=== PATIENT | male | born 1985 | race Caucasian/White ===

== ENCOUNTER → 2017-11-08 17:39 | Outpatient (CLI) | payer MEDICAID, SELFPAY ==
[2017-11-08 18:19] LABS: Hematocrit 43.4 % (40-54); Hemoglobin 15.4 g/dl (13.0-16.5); Mean Corp Hgb Conc 35.5 g/gl (32-36); Mean Corpuscular Hgb 31.4 pg (27.0-32.0); Mean Corpuscular Volume 88.6 fL (80-94); Mean Platelet Vol. 10.8 fl (6.2-12.0); Platelet Count 214 K/mm3 (150-450); RBC Distribution Width SD 41.5 fl (35.1-43.9); White Blood Count 7.4 K/mm3 (4.4-11.0)
[2017-11-08 18:39] LABS: Valproic Acid (Depakene) Level 4 ug/mL (50-100)
[2017-11-08 18:41] LABS: ALB/GLOB Ratio 1.2 RATIO (0.9-2.4); AST(SGOT) 18 U/L (15-37); Alanine Aminotransfer ALT/SGPT 22 U/L (16-61); Albumin, Serum 4.4 g/dL (3.2-5.0); Alkaline Phosphatase 151 U/L (45-117); Anion Gap 6 (5-15); BUN 13 mg/dL (7-18); BUN/Creat Ratio 13.1 RATIO (10-20); Calcium,Total 8.3 mg/dL (8.5-10.1); Chloride 109 mmol/L (98-107); Creatinine, Serum 0.99 mg/dL (0.70-1.30); EST Glomerular Filtration Rate 94 mL/min (>60); Est Glom Filt Rate - Afr Amer 113 mL/min (>60); Globulin 3.6 g/dL (2.2-4.2); Glucose 72 mg/dL (74-106); Potassium 3.5 mmol/L (3.5-5.1); Scan Indicated on CBC? Y/N NO; Sodium Level 141 mmol/L (136-145)
[2017-11-11 14:36] LABS: KEPPRA (LEVETIRACETAM) 40.8 ug/mL (10.0-40.0)
== END ==
PROVIDERS: Visit Provider Nurse Practitioner Acute Care
DX: R56.9 Unspecified convulsions (principal)
CPT/HCPCS: 36415; 80053; 80164; 80177; 85027

== ENCOUNTER → 2017-12-27 07:16 | Outpatient (CLI) | payer MEDICAID, SELFPAY ==
--- NOTE | 2018-01-02 11:12 | EEG ---
- Electroencephalogram Date of service 12/27/17 18 channel electroencephalogram performed on this 32-year-old male with a history of seizures. The test is performed due to recurrent seizures approximately 45 days prior. This is an 18 channel electroencephalogram performed utilizing the International 10-20 electrode placement protocol. EKG rhythm strip recording, photic stimulation, and hyperventilation were also performed. The patient remained awake throughout the recording with no lateralizing or epileptic form changes. Background activity is 8-10 Hz symmetrically in the posterior leads which attenuates with eye opening. Hyperventilation is performed for 3 minutes with good effort with no lateralizing or epileptiform changes. EKG is normal and photic stimulation generates a normal symmetric driving response in the posterior leads. Impression: Normal awake electroencephalogram
== END ==
PROVIDERS: Visit Provider Nurse Practitioner Acute Care
DX: R56.9 Unspecified convulsions (principal)
CPT/HCPCS: 95819

== ENCOUNTER 2018-11-10 04:50 | Emergency (ER) | payer MEDICAID, SELFPAY ==
[2018-11-10 04:51] VITALS: BP 109/74; PULSE 70; RESP 16; TEMP 36.5; O2SAT 98; BMI 20.7
--- NOTE | 2018-11-10 05:56 | ED.VISSUMM ---
- ER Visit Summary Date of Service: 11/10/18 Chief Complaint: Possible seizure History of Present Illness: The patient is a 33 M who presents with possible seizure that occurred this morning. Patient states he missed his dose of Keppra last night. Patient states he normally takes 1500 mg of Keppra twice daily. Patient states he felt lightheaded. Patient states his friend thought he was spaced out and possibly having a seizure. Patient states his normal seizures are grand mal type seizures. Patient denies biting his tongue. Patient denies any urinary or stool incontinence. Physical Examination: Vital signs are stable. Patient is afebrile. Patient is in no acute distress. Pupils are equal, round, and reactive to light bilaterally. Oral mucosa is pink and moist. Neck is supple. Trachea is midline. There is no JVD noted. Heart was regular rate and rhythm. Lungs are clear and equal bilateral. Abdomen is soft. Bowel sounds are normal. There is no tenderness. There is no guarding noted. Skin is warm dry. Cranial nerves II through XII are intact. There are no focal motor or sensory deficits noted. The remaining physical exam is within normal limits. Emergency Department Course and Treatment: I informed the patient that missing 1 dose of his Keppra will probably not alter his Keppra level significantly. Patient was given a dose of Keppra here in the emergency department. Patient was instructed to continue his Keppra twice daily as prescribed. Patient was also advised that this is probably not a seizure since his seizures are typically grand mal type seizures and this did not appear to be a grand mal type seizure. Patient was instructed to follow-up with his primary care physician in 5-7 days. Patient understood and was agreeable with the plan. All questions were answered. Disposition: Discharge home Impression: Seizure disorder This note was generated with [employer] dictation software. It may contain incorrect words, spelling, and punctuation that were not noted in review of the chart prior to signing ED Disposition - Plan for ED Patient: Disposition: Home or Assisted Living Diagnosis: Seizure disorder Instructions: ED Seizure Recurrent Referrals: Alexia Mancia NP-C [Primary Care Provider] -
[2018-11-10 06:23] VITALS: RESP 16
[2018-11-10] MEDS: levETIRAcetam 750 MG Tablet 1500 MG PO (06:23)
== END 2018-11-10 06:24 | disposition home or self-care (01) ==
PROVIDERS: Emergency Provider Emergency Medicine; Family Provider Nurse Practitioner Primary Care; PCP Nurse Practitioner Primary Care
DX: G40.909 Epilepsy, unspecified, not intractable, without status epilepticus (principal); Z72.0 Tobacco use
CPT/HCPCS: 99283

== ENCOUNTER 2018-11-12 03:35 | Emergency (ER) | payer MEDICAID, SELFPAY ==
[2018-11-12 03:36] VITALS: BP 103/91; PULSE 101; RESP 14; TEMP 36.3; O2SAT 98; BMI 20.3
--- NOTE | 2018-11-12 03:51 | ED.VISSUMM ---
- ER Visit Summary Date of Service: 11/12/18 Chief Complaint: Abdominal pain History of Present Illness: The patient is a 33 M [address] to [facility]. He reports that he has left-sided abdominal pain that began approximately 2 hours ago. He believes this is because he ate bad chicken approximately 5 hours prior to this. He does states it is a sharp pain Zeta 10 at worst and 6 out of 10 currently. Is worsened by movement relieved by remaining still. He said nausea without vomiting. No diarrhea. His last bowel was today. No melena or hematochezia. No dysuria frequency. Physical Examination: Vitals: Stable. Afebrile. General: Well-nourished and well-developed. Head: Normocephalic atraumatic. Neck: Supple, no lymphadenopathy. No JVD. Nontender. Cardiovascular: Regular rate and rhythm. No murmurs. Respiratory: No respiratory distress. Clear to auscultation bilaterally. Abdominal: Soft, mild left upper and left lower quadrant tenderness to palpation, nondistended, normal bowel sounds. No guarding, rebound, or peritoneal signs. Back: Nontender. Extremities: Nontender, no edema. Skin: Normal color, no rash. Neurologic: Alert and oriented ?3. Cranial nerves II through XII are intact. Normal strength and sensation. Psych: Normal affect. Emergency Department Course and Treatment: Had a prolonged discussion the patient at this time I do not feel that blood work would be helpful. I did offer to put in an IV, but he has not vomited or had diarrhea I do not think he is dehydrated. He refused both of these things. He was given a dose of Toradol IM and Zofran p.o. Treatment Plan: Patient will be discharged with Zofran. Instructed to follow-up his primary care physician 1-2 days if not improving. Return to the emergency department for any worsening symptoms. Disposition: To home in improved and stable condition. Impression: 1. Abdominal pain, uncertain cause. This note was generated with [employer] dictation software. It may contain incorrect words, spelling, and punctuation that were not noted in review of the chart prior to signing ED Disposition - Plan for ED Patient: Disposition: Home or Assisted Living Instructions: ED Abdominal Pain Unkn Cause Prescriptions: Ondansetron [Zofran Odt] 4 mg PO Q8H PRN PRN #10 tablet PRN Reason: Nausea Referrals: Alexia Mancia, RN TEAM LEADER-C [Primary Care Provider] - 1-2 Days if not improving
[2018-11-12] MEDS: Ketorolac 60 MG/2 ML Vial IM (04:02)
[2018-11-12] MEDS: Ondansetron ODT 4 MG Tablet PO (04:02)
[2018-11-12 04:21] VITALS: PULSE 90; RESP 16
== END 2018-11-12 04:21 | disposition home or self-care (01) ==
LOC: ED 03:59
PROVIDERS: Emergency Provider Emergency Medicine; Family Provider Nurse Practitioner Primary Care; PCP Nurse Practitioner Primary Care
DX: R10.9 Unspecified abdominal pain (principal); R11.0 Nausea; F17.210 Nicotine dependence, cigarettes, uncomplicated; G40.909 Epilepsy, unspecified, not intractable, without status epilepticus

== ENCOUNTER 2018-11-12 19:54 | Emergency (ER) | payer MEDICAID, SELFPAY ==
[2018-11-12 03:36] VITALS: BMI 20.3
[2018-11-12 19:55] VITALS: BP 132/68; PULSE 142; RESP 18; TEMP 37.7; O2SAT 94; BMI 21.6
--- NOTE | 2018-11-12 22:04 | ED.DCSUM_ITS ---
- ER Visit Summary Date of Service: 11/12/18 Chief Complaint: Seizure History of Present Illness: The patient is a 33 M who has known epilepsy is a frequent visitor of the emergency department. He states that he was laying watching TV and significant other reported a 5-minute seizure. During which time she states there was some blood coming from his mouth. He denies any known injury. He states he may have missed his Keppra dose today he is not sure but he is in town because he has court tomorrow he is not he does not have any Keppra with him. Physical Examination: Afebrile vital signs are stable they noted triage tachycardia significantly better down to 105 on my exam Gen: Well-nourished well-developed Head: Normocephalic atraumatic Eyes: Perrl EOMI ENT: TMs clear no rhinorrhea moist mucous membranes Neck: Supple no lymphadenopathy no JVD nontender CVS: Regular rate rhythm no murmurs normal S1-S2 Respiratory: No distress clear to auscultation bilaterally chest nontender Abdomen: Soft nontender nondistended normal bowel sounds no masses Back: Nontender Extremity: Nontender no edema Skin: Normal color no rash Neuro: alert orientated ?3 CN II-XII intact normal strength sensation reflexes gait cerebellar Psych: Normal affect normal mood Emergency Department Course and Treatment:Patient received IV Keppra. We will give him a dose of Keppra to take in the morning. Patient should follow-up with his neurologist Impression: 1. Epileptic seizure This note was generated with [employer] dictation software. It may contain incorrect words, spelling, and punctuation that were not noted in review of the chart prior to signing ED Disposition - Plan for ED Patient: Disposition: Home or Assisted Living Instructions: ED Seizure Recurrent Referrals: Keith Ramsey MD [STAFF PHYSICIAN] -
[2018-11-12] MEDS: levETIRAcetam 1,000 MG Tablet 1500 MG PO (22:27)
[2018-11-12 22:30] VITALS: BP 115/49; PULSE 118; RESP 18; O2SAT 96
== END 2018-11-12 22:31 | disposition home or self-care (01) ==
PROVIDERS: Emergency Provider Emergency Medicine; Family Provider Nurse Practitioner Primary Care; PCP Nurse Practitioner Primary Care
DX: G40.909 Epilepsy, unspecified, not intractable, without status epilepticus (principal)
CPT/HCPCS: 96365; 99283; 99284; J7030; A4216

== ENCOUNTER 2019-01-08 19:09 | Emergency (ER) | payer MEDICAID, SELFPAY ==
[2019-01-08 19:10] VITALS: BP 120/73; PULSE 92; RESP 16; TEMP 36.4; O2SAT 100; BMI 19.4
--- NOTE | 2019-01-08 20:14 | ED.VISSUMM ---
- ER Visit Summary Date of Service: 01/08/19 Chief Complaint: Seizure History of Present Illness: The patient is a 33 M presenting after seizure. Patient had a partially witnessed generalized seizure today. He was found in the bathroom at his [employer]. He does not believe he hit his head. He had no urinary incontinence. He did not bite his tongue. He is on Keppra and Topiramate. He states his topiramate was increased 4 months ago. He states that he may have missed a dose of Keppra this week. He does have his medications available to him. Denies fever. Denies other complaints. Physical Examination: Vitals are stable. Patient is afebrile. Alert no acute distress. HEENT exam is unremarkable. Neck is nontender. Lungs are clear and equal bilaterally. Heart is regular rate and rhythm. Abdomen is soft nontender nondistended. Extremities are unremarkable. Skin is warm and dry. No focal neurologic deficit. Remainder of exam is unremarkable. Emergency Department Course and Treatment: Patient was observed in the ED. patient had no further seizure activity in the ED. He is requesting discharge home. He will follow-up with his neurologist. He is advised to take his medication as directed. Advised return to the ED for worsening complaints. Disposition: Discharge home Impression: Breakthrough seizure This note was generated with [employer] dictation software. It may contain incorrect words, spelling, and punctuation that were not noted in review of the chart prior to signing ED Disposition - Plan for ED Patient: Referrals: Alexia Mancia NP-C [Primary Care Provider] -
--- NOTE | 2019-01-08 20:32 | DCINST.ED_ITS ---
ED Disposition - Plan for ED Patient: Instructions: ED Seizure Recurrent Referrals: Alexia Mancia, BIODIESEL DIVISION MANAGER-C [Primary Care Provider] -
--- NOTE | 2019-01-08 20:32 | ED.DEP ---
ED Disposition - Plan for ED Patient: Instructions: ED Seizure Recurrent Referrals: Alexia Mancia, MODELING INSTRUCTOR-C [Primary Care Provider] -
[2019-01-08 20:38] VITALS: PULSE 82; RESP 16; O2SAT 97
--- NOTE | 2019-01-08 20:39 | ED.RN ---
This Rn discussed discharged instructions with pt. pt denies any further questions. pt walked out of the ED with family member.
== END 2019-01-08 20:40 | disposition home or self-care (01) ==
LOC: ED 19:37
PROVIDERS: Emergency Provider Emergency Medicine; Family Provider Nurse Practitioner Primary Care; PCP Nurse Practitioner Primary Care
DX: R56.9 Unspecified convulsions (principal); Z72.0 Tobacco use
CPT/HCPCS: 99282

== ENCOUNTER → 2019-09-25 10:13 | Outpatient (CLI) | payer MEDICAID, SELFPAY ==
--- NOTE | 2019-09-25 10:14 | RAD_ITS ---
STUDY: X-RAY - LEFT KNEE REASON FOR EXAM: Male, 34 years old. KNEE PAIN, NO TRAUMA TECHNIQUE: 5 view(s) of the knee. COMPARISON: None. FINDINGS: Normal visualized distal femur. Normal visualized proximal tibia and fibula. Normal proximal tibiofibular articulation. Normal medial femorotibial compartment. Normal lateral femorotibial compartment. Normal patellofemoral articulation. There is a soft tissue prominence in the suprapatellar region suggesting a small volume joint effusion. The soft tissue structures are unremarkable. RAD/Knee 4 or More Views IMPRESSION: Small joint effusion. No erosive process or fracture. Electronically Signed: Pasquale Taylor MD (Brooks) at 12:07 EST , Service support ,
== END ==
PROVIDERS: PCP Nurse Practitioner Primary Care; Referring Provider Orthopaedic Surgery; Visit Provider Orthopaedic Surgery
DX: M25.562 Pain in left knee (principal)
CPT/HCPCS: 73564